=== PATIENT | female | born 1950 | race Caucasian/White ===

== ENCOUNTER 2017-04-15 02:41 | Emergency (ER) | payer MEDICARE ==
[~2017-04-15] VITALS: Ht 160 cm; Wt 63.0 kg
[~2017-04-15 02:41] MED LIST: ATOR20TA42 PO; CHLO25 PO; ONDA1TAB16 PO
[2017-04-15 02:44] VITALS: BP 180/90; PULSE 100; RESP 20; TEMP 98; O2SAT 98
[2017-04-15] MEDS ORDERED: FOSA70TA PO (02:44)
[2017-04-15] MEDS ORDERED: LIPI20TA PO (02:44)
[2017-04-15 02:47] VITALS: BP 173/90; PULSE 93; RESP 20; TEMP 98; O2SAT 98
--- NOTE | 2017-04-15 03:04 | PD ---
HPI Chief Complaint: Cardiac Complaint Time Seen by Provider: 02:48 Travel History International Travel<30 days: No Contact w/Intl Traveler<30days: No Traveled to known affect area: No History of Present Illness HPI The patient is 66 year old female who presents to the [facility] emergency department with a history of noticing her heart racing around 1AM. She was watching TV. She denies any cp or sob. She reports that she has a blood pressure cuff that once her and she checked her blood pressure and pulse and it was elevated at 200/100 with a pulse of 138. She denies any prior history of hypertension. She denies having any history of cardiac arrhythmia. I review of systems, she denies having any recent fevers, cough, congestion, neck pain,abdominal pain, vomiting, diarrhea, or neurologic symptoms. She reports having urinary urgency and frequency for the last 2 days. Her last BM was today. She denies having any blood in her stool or black or tarry stools. She denies having any heat or cold intolerances. She denies having any recent weight loss or weight gain. [facility] Past Medical History Narrative Medical The patient's past medical history is significant for hyperlipidemia, osteopenia. PCP: Dr. Letty Stahl. High Cholesterol: Yes Immunizations Current: Yes Tetanus Vaccination: Unknown Influenza Vaccination: Yes ?: Not Past Surgical History Narrative Surgical The patient's past surgical history is significant for x1. Section: Yes (X1) Social History Alcohol Use: Yes (2 glasses of wine 3 x per week) Tobacco Use: No Substance Use: No Allergies-Medications (Allergen,Severity, Reaction): Coded Allergies: No Known Allergies (Unverified , 04/15/17) Reported Meds & Prescriptions Reported Meds & Active Scripts Active Metoprolol Tartrate 25 Mg Tab 25 Mg PO BID Reported Fosamax (Alendronate Sodium) 70 Mg Tab 30 Mg PO Q7D Lipitor (Atorvastatin Calcium) 20 Mg Tab 20 Mg PO HS Review of Systems Except as stated in HPI: all other systems reviewed are Neg General / Constitutional: No: Fever Eyes: No: Visual changes HENT: No: Headaches Cardiovascular: Positive: Palpitations, Tachycardia, No: Chest Pain or Discomfort Respiratory: No: Shortness of Breath Gastrointestinal: No: Abdominal Pain Genitourinary: Positive: Urgency, Frequency, No: Dysuria Musculoskeletal: No: Pain Skin: No Rash Neurologic: No: Weakness Psychiatric: No: Depression Endocrine: No: Polydipsia Hematologic/Lymphatic: No: Easy Bruising Physical Exam Narrative General: The patient is a well-developed well-nourished female in no acute distress. Head and Neck exam: Head is normocephalic atraumatic. Eyes: EOMI, pupils are equal round and reactive to light. Nose: Midline septum with pink mucous membranes Mouth: Dentition unremarkable. Moist mucus membranes. Posterior oropharynx is not erythematous. No tonsillar hypertrophy. Uvula midline. Airway patent. Neck: No palpable lymphadenopathy. No nuchal rigidity. No thyromegaly. Cardiovascular: Regular rate and rhythm without murmurs, gallops, or rubs. No pulse deficit to the extremities. Lungs: Clear to auscultation bilaterally. No wheezes, rhonchi, or rales. Abdomen: Soft, without tenderness to palpation in all 4 quadrants of the abdomen. No guarding, rebound, or rigidity. Negative Milan sign. Extremities: No clubbing, cyanosis, or edema. 2+ pulses in all 4 extremities. Back: No spinous process tenderness to palpation. No costovertebral angle tenderness to palpation. Neurologic Exam: Cranial nerves 2-12 were intact on exam. Strength is 5/5 in all 4 extremities. No sensory deficits noted. No dysdiadochokinesis. Good finger to nose and Heel to andrew bilaterally. Skin Exam: No rash noted. Intact skin that is warm and dry. Data Data Last Documented VS Vital Signs Date Time Temp Pulse Resp B/P (MAP) Pulse Ox O2 Delivery O2 Flow Rate FiO2 04/15/17 03:40 19 97 Room Air 04/15/17 02:47 98.0 93 Orders Orders Electrocardiogram (04/15/17 02:54) Complete Blood Count With Diff (04/15/17 02:54) Comprehensive Metabolic Panel (04/15/17 02:54) Creatine Kinase (Cpk) (04/15/17 02:54) Ckmb (Isoenzyme) Profile (04/15/17 02:54) Troponin I (04/15/17 02:54) B-Type Natriuretic Peptide (04/15/17 02:54) Prothrombin Time / Inr (Pt) (04/15/17 02:54) Act Partial Throm Time (Ptt) (04/15/17 02:54) Lipase (04/15/17 02:54) Urinalysis - C+S If Indicated (04/15/17 02:54) D-Dimer (04/15/17 02:54) Magnesium (Mg) (04/15/17 02:54) Chest, Single Ap (04/15/17 02:54) Iv Access Insert/Monitor (04/15/17 02:54) Ecg Monitoring (04/15/17 02:54) Oximetry (04/15/17 02:54) Drug Screen, Random Urine (04/15/17 02:54) Alcohol (Ethanol) (04/15/17 02:54) Sodium Chlor 0.9% 1000 Ml Inj (Ns 1000 M (04/15/17 04:15) Thyroid Stimulating Hormone (04/15/17 03:00) Labetalol Inj (Trandate Inj) (04/15/17 05:30) Ed Discharge Order (04/15/17 06:02) Labs Laboratory Tests Test 04/15/17 03:00 White Blood Count 6.6 TH/MM3 Red Blood Count 4.15 MIL/MM3 Hemoglobin 14.8 GM/DL Hematocrit 43.2 % Mean Corpuscular Volume 104.1 FL Mean Corpuscular Hemoglobin 35.7 PG Mean Corpuscular Hemoglobin Concent 34.2 % Red Cell Distribution Width 15.6 % Platelet Count 222 TH/MM3 Mean Platelet Volume 8.1 FL Neutrophils (%) (Auto) 63.4 % Lymphocytes (%) (Auto) 26.4 % Monocytes (%) (Auto) 9.6 % Eosinophils (%) (Auto) 0.2 % Basophils (%) (Auto) 0.4 % Neutrophils # (Auto) 4.2 TH/MM3 Lymphocytes # (Auto) 1.7 TH/MM3 Monocytes # (Auto) 0.6 TH/MM3 Eosinophils # (Auto) 0.0 TH/MM3 Basophils # (Auto) 0.0 TH/MM3 CBC Comment DIFF FINAL Differential Comment Prothrombin Time 10.1 SEC Prothromb Time International Ratio 1.0 RATIO Activated Partial Thromboplast Time 24.0 SEC D-Dimer Quantitative (PE/DVT) 0.28 MG/L FEU Blood Urea Nitrogen 18 MG/DL Creatinine 0.86 MG/DL Random Glucose 150 MG/DL Total Protein 8.6 GM/DL Albumin 4.4 GM/DL Calcium Level 10.0 MG/DL Magnesium Level 1.9 MG/DL Alkaline Phosphatase 94 U/L Aspartate Amino Transf (AST/SGOT) 72 U/L Alanine Aminotransferase (ALT/SGPT) 84 U/L Total Bilirubin 0.6 MG/DL Sodium Level 138 MEQ/L Potassium Level 3.9 MEQ/L Chloride Level 104 MEQ/L Carbon Dioxide Level 21.7 MEQ/L Anion Gap 12 MEQ/L Estimat Glomerular Filtration Rate 66 ML/MIN Total Creatine Kinase 65 U/L Troponin I LESS THAN 0.02 NG/ML B-Type Natriuretic Peptide 51 PG/ML Lipase 143 U/L Thyroid Stimulating Hormone 3rd Gen 1.440 uIU/ML Ethyl Alcohol Level LESS THAN 3 MG/DL MDM Medical Decision Making Medical Screen Exam Complete: Yes Emergency Medical Condition: Yes Medical Record Reviewed: Yes Interpretation(s) Last Impressions Chest X-Ray 04/15/17 0254 Signed Impressions: Service Date/Time: Saturday, April 15, 2017 03:03 - CONCLUSION: No acute disease. Fred Evans MD Differential Diagnosis Hyperthyroid disorder, versus dehydration, versus anxiety disorder, versus hypertension, versus acute coronary syndrome, versus pulmonary embolism Narrative Course During the course of the patients emergency department visit, the patients history, examination, and differential diagnosis were reviewed with the patient. The patient was placed on a cardiac cath tech with oximetry and frequent blood pressure monitoring. The patient had IV access obtained and blood work sent for analysis. The patient had an ECG done on arrival. The patient's ECG revealed a sinus rhythm with a sinus tachycardia heart rate of 102, no acute ST segment elevation. QRS duration is 85 ms, QTC 382 ms. The patient was initially provided normal saline 1 L IV fluid bolus. The patients laboratory studies were reviewed and remarkable for a white count of 6.6, hemoglobin 14.8, platelets 222 with 9.6 monos, CMP is remarkable for glucose of 150, AST 72, ALT 84, CPK 65, troponin I less than 0.02, total protein 8.6, BNP 51, lipase 143, TSH 1.44, PT PTT within normal limits, d-dimer 0.28 decreasing the likelihood of pulmonary embolism in this patient with no other significant risk factors. Radiology studies were reviewed and remarkable for a chest x-ray that shows no acute cardiopulmonary disease. The patient's heart rate has come down with IV fluid administration. The patient is noted to have mildly elevated LFTs with a history of her AST being slightly elevated in the past in 2014. She will be given a lab slip to repeat her LFTs in 1 week along with a viral hepatitis panel to follow-up with about with her primary care physician, Dr. Stahl. The patient's blood pressure is noted to be elevated. She denies any prior history of hypertension, however a review of the record at this facility reveals that intermittently in the past and has been elevated. The patient has remained hypertensive during the course of her emergency department visit. The patient's tachycardia improved. The patient was given labetalol 5 mg IV. She was agreeable with the plan to be discharged home on metoprolol with close follow-up with her primary care physician. The patient is resting comfortably and feels better, is alert and in no distress. The patients results and examination findings were discussed with the patient. The repeat examination is unremarkable and benign. The history, exam, diagnostic testing, and current condition do not suggest any significant pathology to warrant further testing, continued ED treatment, admission, or surgical evaluation at this point. The vital signs have been stable. The patient does not have uncontrollable pain, intractable vomiting, or other significant symptoms. The patient's condition is stable and appropriate for discharge. The patient will pursue further outpatient evaluation with a primary care physician or other designated or consulting physician as indicated in the discharge instructions. The patient expressed understanding and was agreeable with this plan. Diagnosis Primary Impression: Hypertension Qualified Codes: I10 - Essential (primary) hypertension Additional Impressions: Palpitations Elevated liver enzymes Referrals: Primary Care Physician 3 days Patient Instructions: General Instructions, Heart Palpitations (ED), Hypertension (ED) Additional Instructions: The patient was provided an outpatient lab slip for LFTs and a viral hepatitis panel to be done in one week. She denies any known prior history of elevated liver enzymes. She will follow-up with her primary care physician regarding these results and findings. Med/Other Pt SpecificInfo: Prescription(s) given, No Change to Meds Scripts Metoprolol Tartrate (Metoprolol Tartrate) 25 Mg Tab 25 MG PO BID, #14 TAB 0 Refills Prov: Judith Baum MD 04/15/17 Disposition: 01 DISCHARGE HOME Condition: Stable Judith Baum MD Apr 15, 2017 03:04
--- NOTE | 2017-04-15 03:15 | RADRPT ---
EXAM DATE/TIME: 04/15/2017 03:03 [facility] COMPARISON: CHEST SINGLE AP, April 06, 2014, 2:31. INDICATIONS : Short of breath. MEDICAL HISTORY : None. SURGICAL HISTORY : None. ENCOUNTER: Initial ACUITY: 1 day PAIN SCORE: 0/10 LOCATION: Bilateral chest FINDINGS: A single view of the chest demonstrates the lungs to be symmetrically aerated without evidence of mas s, infiltrate or effusion. The cardiomediastinal contours are unremarkable. Osseous structures are intact. CONCLUSION: No acute disease. Fred Evans MD on April 15, 2017 at 3:12 Board Certified Radiologist. This report was verified electronically.
[2017-04-15 03:17] LABS: AUTOMATED NEUTROPHIL # 4.2 TH/MM3 (1.8-7.7); BASOPHIL % 0.4 % (0.0-2.0); EOSINOPHIL % 0.2 % (0.0-4.0); HEMATOCRIT 43.2 % (35.0-46.0); HEMOGLOBIN 14.8 GM/DL (11.6-15.3); LYMPH % 26.4 % (9.0-44.0); LYMPHOCYTE # 1.7 TH/MM3 (1.0-4.8); MEAN CELL VOLUME 104.1 FL (80.0-100.0); MEAN CORPUSCULAR HEMOGLOBIN 35.7 PG (27.0-34.0); MEAN CORPUSCULAR HGB CONC 34.2 % (32.0-36.0); MEAN PLATELET VOLUME 8.1 FL (7.0-11.0); MONO % 9.6 % (0.0-8.0); MONOCYTE # 0.6 TH/MM3 (0-0.9); NEUT % 63.4 % (16.0-70.0); PLATELET COUNT 222 TH/MM3 (150-450); RED BLOOD COUNT 4.15 MIL/MM3 (4.00-5.30); RED CELL DISTRIBUTION WIDTH 15.6 % (11.6-17.2); WHITE BLOOD COUNT 6.6 TH/MM3 (4.0-11.0)
[2017-04-15 03:29] LABS: PROTHROMBIN TIME - PATIENT 10.1 SEC (9.8-11.6)
[2017-04-15 03:33] LABS: D-DIMER 0.28 MG/L FEU (0.00-0.50)
[2017-04-15 03:37] LABS: ALBUMIN 4.4 GM/DL (3.4-5.0); ALT (GPT) 84 U/L (10-53); AST (GOT) 72 U/L (15-37); BICARBONATE 21.7 MEQ/L (21.0-32.0); BLOOD UREA NITROGEN 18 MG/DL (7-18); CHLORIDE 104 MEQ/L (98-107); CREATININE 0.86 MG/DL (0.50-1.00); GLOMERULAR FILTRATION RATE 66 ML/MIN (>89); GLUCOSE,RANDOM 150 MG/DL (74-106); LIPASE 143 U/L (73-393); MAGNESIUM 1.9 MG/DL (1.5-2.5); SODIUM (NA) 138 MEQ/L (136-145)
[2017-04-15 03:40] VITALS: RESP 19; O2SAT 97
[2017-04-15 03:40] LABS: ALKALINE PHOSPHATASE 94 U/L (45-117); TOTAL BILIRUBIN ADULT 0.6 MG/DL (0.2-1.0); TOTAL PROTEIN 8.6 GM/DL (6.4-8.2); TROPONIN I LESS THAN 0.02 NG/ML (0.02-0.05)
[2017-04-15] MEDS ORDERED: SODIUM CHLOR 0.9% 1000 ML INJ 1,000 ML IV ONE (04:15)
[2017-04-15] MEDS ORDERED: METO25TA3 PO (05:24)
[2017-04-15] MEDS ORDERED: LABETALOL HCL 100 MG/20 ML VIAL IV PUSH ONE (05:30)
--- NOTE | 2017-04-18 13:25 | EKG ---
Date Performed: 04/15/2017 Time Performed: 02:46:14 PTAGE: 66 years EKG: SINUS TACHYCARDIA LEFT ANTERIOR ENLARGEMENT [-0.15mV P WAVE IN V1/V2] LOW QRS VOLTAGE IN [place] ECORDIAL LEADS [QRS DEFLECTION <1.0 mV IN CHEST LEADS] POSSIBLE RIGHT VENTRICULAR CONDUCTION DELAY [R SR (QR) IN V1/V2] Since PREVIOUS TRACING , no significant change noted PREVIOUS TRACIN04/06/2014 02.40 DOCTOR: Oliver Owen Interpretating Date/Time 04/18/2017 15:27:18
== END 2017-04-15 06:33 | disposition home or self-care (01) ==
LOC: NEPE 02:41
DX: I10 Essential (primary) hypertension (principal); R74.8 Abnormal levels of other serum enzymes; R00.2 Palpitations; R39.15 Urgency of urination; R35.0 Frequency of micturition; R00.0 Tachycardia, unspecified; E78.5 Hyperlipidemia, unspecified; M85.80 Other specified disorders of bone density and structure, unspecified site; E78.00 Pure hypercholesterolemia, unspecified
CPT/HCPCS: 71045; 80053; 80307; 82550; 83690; 83735; 83880; 84443; 84484; 85025; 85379; 85610; 85730; 93005; 96361; 96374; 99284; J7030